=== PATIENT | male | born 1975 | race Caucasian/White ===

== ENCOUNTER 2022-03-08 09:02 | Inpatient (IN) | payer SELFPAY ==
[2022-03-08] VITALS (663 sets, daily range): BP systolic 84–119; BP diastolic 57–69; PULSE 79–101; TEMP 98.3; O2SAT 96–100
[~2022-03-08] VITALS: Ht 182.9 cm; Wt 80.9 kg
[~2022-03-08 09:02] MED LIST: CEPHALEXIN500 M1 PO; CIPRO 500MG TA500 MG PO; DOXYCYCLINE 10100 MG PO; GLUCOPHAGE500 MG/TAB PO; LANTUS SOLOS100 U/ML SQ; NOVOLIN R100 U/ML SQ
[2022-03-08 09:28] LABS: ARTERIAL BLD GAS O2 SATURATION 95.6 % (92-100); ARTERIAL BLD GAS TCO2 CT 12.7; ARTERIAL BLOOD GAS BASE EXCESS -11.3 (-2-2); ARTERIAL BLOOD GAS HCO3 12.1 meq/L (22-26); ARTERIAL BLOOD GAS PCO2 21.7 mmHg (35-45); ARTERIAL BLOOD GAS PO2 86.5 mmHg (80-100); ARTERIAL BLOOD GAS pH 7.36 (7.35-7.45)
[2022-03-08 09:31] LABS: MUCOUS Present (NOT PRESENT); PH 5 (5-8); SQUAMOUS EPITHELIAL None Seen /hpf (0-10); URINE APPEARANCE Hazy (CLEAR/HAZY); URINE BACTERIA None Seen /hpf (NONE SEEN); URINE BILIRUBIN Negative (NEGATIVE); URINE BLOOD 1+ (NEGATIVE); URINE COLOR Yellow (YELLOW); URINE GLUCOSE 3+ (NEGATIVE); URINE KETONE 1+ (NEGATIVE); URINE LEUKOCYTE ESTERASE Negative (NEGATIVE); URINE NITRATE Negative (NEGATIVE); URINE PROTEIN(semi-quant) 2+ (NEGATIVE); URINE RBC 0-2 /hpf (0-2); URINE UROBILINOGEN Negative (NEGATIVE)
[2022-03-08 09:33] LABS: COLLECTION METHOD CATHETER
[2022-03-08 09:34] LABS: BASO % 0.2 % (0.0-2.0); GRAN # 11.1 K/mm3 (1.4-6.5); GRAN % 79.7 % (42.2-75.2); HEMATOCRIT 43.5 % (42.0-52.0); LYMPH # 1.5 K/mm3 (1.2-3.4); MEAN CELL VOLUME 85 fl (80.0-100.0); MEAN CORPUSCULAR HEMOGLOBIN 28 pg (27-31); MEAN CORPUSCULAR HGB CONC 32 g/dl (33.0-37.0); MEAN PLATELET VOLUME 10.6 fl (7.4-10.4); MONO # 1.2 K/mm3 (0.1-0.6); MONO % 8.7 % (1.7-9.3); PLATELET COUNT 632 K/mm3 (130-400); REDCELL DISTRIBUTION WIDTH-CV 14.3 % (11.5-14.5)
[2022-03-08 09:47] LABS: ALBUMIN 1.4 gm/dL (3.5-5.0); BILIRUBIN,TOTAL 0.2 mg/dL (0.2-1.2); C-REACTIVE PROTEIN 3.35 mg/dL (0.00-0.50); CREATININE, serum 3.22 mg/dL (0.72-1.25); POTASSIUM 4.6 mmol/L (3.5-4.5)
--- NOTE | 2022-03-08 13:39 | NUR ---
workers compensation claims specialist contacted patient's brother, Venkat Arreola, #[phone], and obtained the following information as patient is unresponsive. Patient lives with Venkat and they have been in [place] for about 2 years. Venkat states that patient is not and does not have any children. Patient's parents are both and he has two brothers (Venkat and Umberto). Venkat verbalizes understanding that he and Umberto are patient's legal next of kin as there are no advance directives made by the patient. Patient does not have any primary care provider and has received his insulin and lantus prescriptions from the emergency room previously. Venkat states that he would help patient, however, patient is a "slow learner" and never wanted to be seen by a physician or apply for Medicaid or Disability. Patient does not work at this time and does not have any health insurance. Venkat states that patient has seen mental health providers previously, possibly in [place] or [place].
[2022-03-08 15:38] LABS: CALCIUM 7.7 mg/dL (8.4-10.2); CREATININE, serum 2.89 mg/dL (0.72-1.25); POTASSIUM 3.4 mmol/L (3.5-4.5)
--- NOTE | 2022-03-08 15:48 | NUR ---
tradeshow worker met with patient's brother, Venkat, and their rate reviewer and offered support. Venkat will speak with his brother, Umberto and schedule a time tomorrow to talk with physician via [employer]. Umbreto resides in [place].
[2022-03-08 15:49] LABS: ARTERIAL BLD GAS O2 SATURATION 98.5 % (92-100); ARTERIAL BLOOD GAS BASE EXCESS -7.5 (-2-2); ARTERIAL BLOOD GAS HCO3 15.3 meq/L (22-26); ARTERIAL BLOOD GAS PCO2 23.7 mmHg (35-45); ARTERIAL BLOOD GAS pH 7.43 (7.35-7.45)
[2022-03-08 15:50] LABS: ARTERIAL BLOOD GAS PO2 156.4 mmHg (80-100)
[2022-03-08 17:45] LABS: CALCIUM 7.4 mg/dL (8.4-10.2); CREATININE, serum 2.69 mg/dL (0.72-1.25); POTASSIUM 3.3 mmol/L (3.5-4.5)
[2022-03-08 18:24] LABS: GASTROCCULT POSITIVE; pH GASTRIC CONTENTS 3
[2022-03-08 19:18] LABS: CALCIUM 7.4 mg/dL (8.4-10.2); CREATININE, serum 2.65 mg/dL (0.72-1.25); POTASSIUM 3.4 mmol/L (3.5-4.5)
--- NOTE | 2022-03-08 19:53 | NUR ---
ALARMS TESTED AND WORKING. TX GIVEN INLINE WITH VENT AND TOLERATED WELL.
[2022-03-08 21:32] LABS: CALCIUM 7.3 mg/dL (8.4-10.2); CREATININE, serum 2.61 mg/dL (0.72-1.25); POTASSIUM 3.9 mmol/L (3.5-4.5)
--- NOTE | 2022-03-08 23:20 | NUR ---
[address] QUIÑONEZ OF PATIENT WITH LOW BP, STATED HE WILL BE OVER TO SEE PATIENT ANA. 0 DR. QUIÑONEZ PRESENT AT PATIENT BEDSIDE, NOTIFIED OF ACTIONS TAKEN WITH LOW SBP, PLACING SEDATION MEDICATIONS ON HOLD DUE TO PATIENT ONLY WITHDRAW FROM DEEP PAINFUL STIMULI PRIOR TO THIS TIME. NOTED SBP AT 2315 OF 108/64, WITH SEDATION MEDICATION ON HOLD FOR APPROX 30 MINUTES. RESTARTED FENTANYL AT PREVIOUS DOSE OF 25 MCG/HR CONTINUE WITH PROPOFOL ON HOLD. WILL MONITOR FOR PATIENT AWAKENING.
[2022-03-08 23:32] LABS: CALCIUM 7.6 mg/dL (8.4-10.2); CREATININE, serum 2.57 mg/dL (0.72-1.25); POTASSIUM 3.8 mmol/L (3.5-4.5)
[2022-03-09] VITALS (1230 sets, daily range): BP systolic 82–146; BP diastolic 50–74; PULSE 75–93; TEMP 97.9–98.6; O2SAT 68–100
--- NOTE | 2022-03-09 00:45 | NUR ---
LEVOPHED INITIATED AT 0028 DUE TO DECREASING BP AT 0045 BP OF 127/67 RESTARTED PROPOFOL DUE TO PATIENT COUGHING AGAINST VENT AT TIMES
[2022-03-09 01:21] LABS: CALCIUM 7.5 mg/dL (8.4-10.2); CREATININE, serum 2.49 mg/dL (0.72-1.25); POTASSIUM 3.8 mmol/L (3.5-4.5)
[2022-03-09 03:34] LABS: CALCIUM 7.4 mg/dL (8.4-10.2); CREATININE, serum 2.42 mg/dL (0.72-1.25); POTASSIUM 3.7 mmol/L (3.5-4.5)
--- NOTE | 2022-03-09 05:11 | NUR ---
PATIENT HAS BEEN INTUBATED LESS THAN 24 HOURS NO SEDATION VACATION PREFORMED AT THIS TIME
--- NOTE | 2022-03-09 05:20 | NUR ---
46 yo male admitted for further care and management of a sub-acute CVA, DKA, as well as sepsis now with positive blood cultures with presumptive ID of Kleb oxytoca and Staph aureus. ht 182.9 cm wt 75.8 kg SCr 2.49 with estimated CrCl ~35 ml/min half life 22.6 hours Plan: Will give an initial loading dose of vancomycin 1500 mg x1 (19.8 mg/kg); followed by a maintenance regimen of vancomycin 1250 mg q24h to target a goal trough of 15-20 mcg/ml. Will follow patient's renal function, micro data, and vancomycin levels as indicated to assess for any necessary changes to regimen. Thank you for this dosing consult.
[2022-03-09 05:55] LABS: ARTERIAL BLD GAS O2 SATURATION 98.3 % (92-100); ARTERIAL BLD GAS TCO2 CT 18.2; ARTERIAL BLOOD GAS BASE EXCESS -5.2 (-2-2); ARTERIAL BLOOD GAS HCO3 17.4 meq/L (22-26); ARTERIAL BLOOD GAS PCO2 25.4 mmHg (35-45); ARTERIAL BLOOD GAS pH 7.45 (7.35-7.45)
[2022-03-09 05:57] LABS: ARTERIAL BLOOD GAS PO2 139.7 mmHg (80-100)
[2022-03-09 05:58] LABS: BASO % 0.3 % (0.0-2.0); EOS % 0.1 % (0.0-4.0); GRAN # 11.5 K/mm3 (1.4-6.5); GRAN % 74.8 % (42.2-75.2); LYMPH # 2.4 K/mm3 (1.2-3.4); LYMPH % 15.9 % (20.0-51.0); MEAN CELL VOLUME 88 fl (80.0-100.0); MEAN CORPUSCULAR HGB CONC 32 g/dl (33.0-37.0); MEAN PLATELET VOLUME 10.6 fl (7.4-10.4); MONO # 1.3 K/mm3 (0.1-0.6); MONO % 8.4 % (1.7-9.3); RED BLOOD COUNT 3.55 M/mm3 (4.20-5.60); REDCELL DISTRIBUTION WIDTH-CV 14.6 % (11.5-14.5)
[2022-03-09 06:08] LABS: INR 1.1 (0.8-3.0); PROTHROMBIN TIME 11.8 SECONDS (9.7-12.8)
[2022-03-09 06:19] LABS: HEMATOCRIT 31.1 % (42.0-52.0); MEAN CORPUSCULAR HEMOGLOBIN 28 pg (27-31)
[2022-03-09 06:20] LABS: HEMOGLOBIN 9.8 g/dl (13.5-18.0); PLATELET COUNT 418 K/mm3 (130-400)
[2022-03-09 06:21] LABS: CALCIUM 7.4 mg/dL (8.4-10.2); CHOLESTEROL RISK RATIO 9.2; CREATININE, serum 2.33 mg/dL (0.72-1.25); POTASSIUM 3.6 mmol/L (3.5-4.5)
--- NOTE | 2022-03-09 07:00 | NUR ---
BEDSIDE SHIFT REPORT GIVEN BY ROSIE BEST. RIGHT ARM DRIP IN PLACE SEE DRIP FLOWSHEET FOR INFUSIONS. MCKEON IN PLACE WITH APPROPRIATE OUTPUT. VENT SIZE 8.0, MODE AC, TV 470, PEEP 5, FIO2 25%. ETT AT 25 AT TEETH. OG 55 AT TEETH WITH BROWN DRAINAGE, OG TO LIS. BILATERAL SOFT WRIST RESTRAINTS IN PLACE, CMES INTACT. VSS, NO S/S OF DISCOMFORT
[2022-03-09 07:19] LABS: CALCIUM 7.2 mg/dL (8.4-10.2); CREATININE, serum 2.26 mg/dL (0.72-1.25); POTASSIUM 3.8 mmol/L (3.5-4.5)
[2022-03-09 09:33] LABS: CALCIUM 7.3 mg/dL (8.4-10.2); CREATININE, serum 2.28 mg/dL (0.72-1.25); POTASSIUM 3.9 mmol/L (3.5-4.5)
--- NOTE | 2022-03-09 10:30 | NUR ---
PROPOFOL AND FENTYNL ON HOLD WEENING TRIAL
[2022-03-09 13:01] LABS: CALCIUM 7.4 mg/dL (8.4-10.2); CREATININE, serum 2.3 mg/dL (0.72-1.25); MAGNESIUM 1.7 mg/dL (1.6-2.6); PHOSPHOROUS 2.4 mg/dL (2.3-4.7); POTASSIUM 4.4 mmol/L (3.5-4.5)
--- NOTE | 2022-03-09 17:21 | NUR ---
PT OFF SEDATION SINCE THIS AM.
[2022-03-09 19:04] LABS: CALCIUM 7.3 mg/dL (8.4-10.2); CREATININE, serum 2.29 mg/dL (0.72-1.25); POTASSIUM 4.2 mmol/L (3.5-4.5)
--- NOTE | 2022-03-09 20:00 | NUR ---
UPON ASSESSMENT PATIENT WILL MOVE BOTH LEGS IN WITH DRAWAL FROM TOUCH, ALSO OPEN EYES UPON COMAND AND EXTERNAL STIMULATION.. NO MOVEMENT OF EYES FROM LEFT TO RIGHT = AND REACTIVE MM4. HOSPITALIST CONTACTED TO EVELUATE FURTHER..
[2022-03-10] VITALS (1053 sets, daily range): BP systolic 124–140; BP diastolic 73–77; PULSE 80–95; TEMP 97.3–99.1; O2SAT 95–100
[2022-03-10 00:39] LABS: CALCIUM 7.5 mg/dL (8.4-10.2); CREATININE, serum 2.24 mg/dL (0.72-1.25)
--- NOTE | 2022-03-10 01:08 | NUR ---
Contacted [facility]. Referral #[id number]. [facility] requests update if plan of care or patient status changes.
[2022-03-10 04:47] LABS: BASO % 0.1 % (0.0-2.0); EOS % 0.2 % (0.0-4.0); GRAN # 11.3 K/mm3 (1.4-6.5); GRAN % 78.6 % (42.2-75.2); LYMPH # 1.9 K/mm3 (1.2-3.4); LYMPH % 12.9 % (20.0-51.0); MEAN CELL VOLUME 89 fl (80.0-100.0); MEAN CORPUSCULAR HGB CONC 32 g/dl (33.0-37.0); MEAN PLATELET VOLUME 10.3 fl (7.4-10.4); MONO # 1.1 K/mm3 (0.1-0.6); MONO % 7.9 % (1.7-9.3); PLATELET COUNT 341 K/mm3 (130-400); RED BLOOD COUNT 3.42 M/mm3 (4.20-5.60); REDCELL DISTRIBUTION WIDTH-CV 14.7 % (11.5-14.5)
[2022-03-10 04:52] LABS: HEMATOCRIT 30.3 % (42.0-52.0); HEMOGLOBIN 9.6 g/dl (13.5-18.0); MEAN CORPUSCULAR HEMOGLOBIN 28 pg (27-31)
[2022-03-10 04:55] LABS: INR 1.2 (0.8-3.0); PROTHROMBIN TIME 13.4 SECONDS (9.7-12.8)
[2022-03-10 05:04] LABS: CALCIUM 6.7 mg/dL (8.4-10.2); CREATININE, serum 1.85 mg/dL (0.72-1.25); MAGNESIUM 1.6 mg/dL (1.6-2.6); POTASSIUM 3.5 mmol/L (3.5-4.5)
[2022-03-10 05:05] LABS: ARTERIAL BLD GAS O2 SATURATION 96.5 % (92-100); ARTERIAL BLOOD GAS BASE EXCESS -6.8 (-2-2); ARTERIAL BLOOD GAS HCO3 16.9 meq/L (22-26); ARTERIAL BLOOD GAS PCO2 28.5 mmHg (35-45); ARTERIAL BLOOD GAS PO2 88.8 mmHg (80-100); ARTERIAL BLOOD GAS pH 7.39 (7.35-7.45)
--- NOTE | 2022-03-10 05:06 | NUR ---
ANESTHIA AND SEDATION HAV BEEN DC FOR THE LAST 16 HOURS, PATIENT DOES NO RESPONSE TO EXTERNAL STIMULI/ IS ON CPAP TRIAL AT THIS TIME
--- NOTE | 2022-03-10 05:08 | NUR ---
PT IS ON CPAP TRIAL 5/5 TOLERATING THE WEAN TRIAL VERY WELL. PT IS OFF ALL SEDATION, IN OBTAINING AM ABG THIS RT WAS POKING THE LEFT ARM WHICH IS SAID TO BE THE PARALYZED SIDE FROM THE PTS STROKE. HOWEVER, WHEN POKING FOR THE ABG THE PATIENT HAD MOVED THEIR ARM AFTER BEING STUCK. PT ALSO GRIMMACES WHEN DOING ORAL CARE.
--- NOTE | 2022-03-10 07:29 | NUR ---
On 03/09/2022 social media assistant met with brother, Venkat and offered emotional support. Venkat states that his brother Umberto (who lives in [place]) is on parole and is trying to get a pass to come to visit patient. Venkat states they made patient a DNR.
--- NOTE | 2022-03-10 09:03 | NUR ---
BEDSIDE SHIFT REPORT RECEIVED FROM ROSIE Mccall. PT LINES RUNNING THROUGH RIGHT UPPER ARM PICC. (SEE DRIP FLOWSHEET) MCKEON IS TO GRAVITY AND DRAINING APPROPRIATELY PT NO LONGER IN RESTRAINTS. VENT/ETT AT 25CM/OG IN PLACE SPECIFIED. VENT ON CPAP TRIAL. VITAL SIGNS WDL
--- NOTE | 2022-03-10 10:23 | NUR ---
The patient remains intubated. He is less responsive today. His RN reports that the patient's brother, Umberto, from [place] will be arriving to [facility] around 2300. The patient's brother's Venkat and Umberto are the patient's next-of-kin.
--- NOTE | 2022-03-10 13:54 | NUR ---
RN CALLED TO INFORM ME THAT THE VENTILATOR HAD BEEN PLACED BACK IN ACVC+ MODE DUE TO PROLONGED PERIOD OF APNEA. PT HAD BEEN PLACED ON CPAP MODE 03/23, SINCE 299.
--- NOTE | 2022-03-10 19:09 | NUR ---
TX GIVEN INLINE WITH VENT, TOLERATED WELL. ALARMS TESTED AND WORKING.
[2022-03-11] VITALS (1236 sets, daily range): BP systolic 136–170; BP diastolic 82–98; PULSE 74–97; TEMP 98.3–98.9; O2SAT 77–100
[2022-03-11 04:47] LABS: ARTERIAL BLD GAS TCO2 CT 19.8; ARTERIAL BLOOD GAS BASE EXCESS -3.7 (-2-2); ARTERIAL BLOOD GAS PO2 113.1 mmHg (80-100); ARTERIAL BLOOD GAS pH 7.47 (7.35-7.45)
[2022-03-11 04:57] LABS: BASO % 0.2 % (0.0-2.0); EOS % 0.3 % (0.0-4.0); GRAN # 9.5 K/mm3 (1.4-6.5); GRAN % 80.2 % (42.2-75.2); HEMOGLOBIN 9.4 g/dl (13.5-18.0); LYMPH # 1.6 K/mm3 (1.2-3.4); LYMPH % 13.8 % (20.0-51.0); MEAN CELL VOLUME 89 fl (80.0-100.0); MEAN CORPUSCULAR HEMOGLOBIN 28 pg (27-31); MEAN CORPUSCULAR HGB CONC 31 g/dl (33.0-37.0); MEAN PLATELET VOLUME 10.7 fl (7.4-10.4); MONO # 0.6 K/mm3 (0.1-0.6); MONO % 5.2 % (1.7-9.3); PLATELET COUNT 311 K/mm3 (130-400); RED BLOOD COUNT 3.36 M/mm3 (4.20-5.60)
--- NOTE | 2022-03-11 05:00 | NUR ---
SEDATION VACATION PATIENT IS NOT ON ANY SEDATION, PATIENT IS UNRESPONSIVE TO VOICE AND PAINFUL STIMULI
[2022-03-11 05:03] LABS: INR 1.2 (0.8-3.0); PROTHROMBIN TIME 13.3 SECONDS (9.7-12.8)
[2022-03-11 05:15] LABS: CALCIUM 7.6 mg/dL (8.4-10.2); CREATININE, serum 2.11 mg/dL (0.72-1.25); MAGNESIUM 1.9 mg/dL (1.6-2.6); POTASSIUM 4.5 mmol/L (3.5-4.5)
--- NOTE | 2022-03-11 08:00 | NUR ---
Opens eyes and demonstrates facial grimacing with painful stimuli, however, unable to follow commands. Pupils equal and reactive with nystagmus noted bilaterally.
--- NOTE | 2022-03-11 12:20 | NUR ---
Extubated at 1220. Initially on 3L oxymask with o2 mid 90's. After approximately 10 min 02 needs up to 10L with o2 sats in the low 90's. Patient has snoring respirations and a gag reflex. Opens eyes to painful stimuli but not following any verbal commands. RT at bedside and has been providing frequent oral suctioning. Dr. Morales notified. Ordered an ABG and requested to be placed on BIPAP. This nurse made clear to Dr. Morales that patient was having copious amounts of oral secreations. WIll continue with plan for BIPAP.
--- NOTE | 2022-03-11 12:20 | NUR ---
PT EXTUBATED PER DR GODDARD'S ORDERS. PT WITH INCREASE SECRETIONS AND INITIAL DESATS TO HIGH 80'S WITH INCREASED WOB. SUCTIONED FOR MODERATE AMOUNT OF THICK YELLOW SECTRETIONS. SPO2 INCREASE TO 90'S. PT ON 10L OXYMASK POST EXTUBATION. HR 105, RR 22, SPO2 92%. NO STRIDOR NOTED POST EXTUBATION.PT PLACED ON BIPAP, SETTINGS PER DR. GODDARD ORDERS. PT [place] WELL AND APPEARS COMFORTABLE.
--- NOTE | 2022-03-11 13:00 | NUR ---
Disucssed plan of care with Dr. Morales. Patient's two brothers were at bedside to see patient. They made the decision to extubate at this time and if within 24hrs of initial extubation patient's respiratory status was to decomensate they would wish patient to be re-intubated. If after 24 hrs patient decompensates then they do not wish to proceed with re-intubation. Patient othewise remains a DNR as noted on the chart.
[2022-03-11 14:49] LABS: ARTERIAL BLD GAS O2 SATURATION 97.5 % (92-100); ARTERIAL BLD GAS TCO2 CT 20.5; ARTERIAL BLOOD GAS BASE EXCESS -3.5 (-2-2); ARTERIAL BLOOD GAS HCO3 19.6 meq/L (22-26); ARTERIAL BLOOD GAS PCO2 29.6 mmHg (35-45); ARTERIAL BLOOD GAS PO2 104.3 mmHg (80-100); ARTERIAL BLOOD GAS pH 7.44 (7.35-7.45)
--- NOTE | 2022-03-11 18:35 | NUR ---
Patient noted to occasionally desaturate to low 80's: RT notified. BIPAP mask adjusted and oral suctioning completed and o2 back to mid 90's. Will continue to monitor.
--- NOTE | 2022-03-11 19:15 | NUR ---
Received report from ROSIE Parr.
--- NOTE | 2022-03-11 20:30 | NUR ---
Patient resting quietly in bed. He does not verbally respond to sound or pain. Opens eyes and withdraws in response to pain. Vitals within normal limits. He continues to receive oxygen via BiPap with settings 16/8 at 40% FiO2. No IV fluids or medications infusing at this time.
[2022-03-12] VITALS (924 sets, daily range): BP systolic 124–138; BP diastolic 80–87; PULSE 85–101; TEMP 97.9–98.5; O2SAT 18–100
[2022-03-12 04:59] LABS: BASO % 0.2 % (0.0-2.0); EOS # 0.1 K/mm3 (0.0-0.7); EOS % 0.6 % (0.0-4.0); GRAN # 11.6 K/mm3 (1.4-6.5); GRAN % 81.5 % (42.2-75.2); HEMOGLOBIN 10.1 g/dl (13.5-18.0); LYMPH # 1.7 K/mm3 (1.2-3.4); LYMPH % 12.2 % (20.0-51.0); MEAN CELL VOLUME 90 fl (80.0-100.0); MEAN CORPUSCULAR HEMOGLOBIN 28 pg (27-31); MEAN CORPUSCULAR HGB CONC 31 g/dl (33.0-37.0); MEAN PLATELET VOLUME 10.9 fl (7.4-10.4); MONO # 0.7 K/mm3 (0.1-0.6); MONO % 5.1 % (1.7-9.3); PLATELET COUNT 341 K/mm3 (130-400); RED BLOOD COUNT 3.63 M/mm3 (4.20-5.60); REDCELL DISTRIBUTION WIDTH-CV 14.7 % (11.5-14.5)
[2022-03-12 05:01] LABS: HEMATOCRIT 32.8 % (42.0-52.0)
[2022-03-12 05:17] LABS: BILIRUBIN,TOTAL 0.2 mg/dL (0.2-1.2); CREATININE, serum 2.04 mg/dL (0.72-1.25); POTASSIUM 4.8 mmol/L (3.5-4.5); TOTAL PROTEIN 5.1 gm/dL (6.2-8.1)
--- NOTE | 2022-03-12 09:29 | NUR ---
BEDSIDE SHIFT REPORT GIVEN BY ROSIE BRICEÑO. PT ON BIPAP AND TOLERATING. PT IV ABX RUNNING (SEE DRIP FLOW SHEET). VSS. NO ACUTE CHANGES AT THIS TIME
--- NOTE | 2022-03-12 10:28 | NUR ---
PT TRIALED OFF BIPAP AT THIS TIME PER DR GODDARD ORDERS. PT CURRENTLY ON ROOM AIR, SPO2 93%, RR 19, HR 95. BLBS EQUAL BUT DIMINISHED.
[2022-03-12 11:32] LABS: ARTERIAL BLD GAS O2 SATURATION 91.3 % (92-100); ARTERIAL BLD GAS TCO2 CT 20.2; ARTERIAL BLOOD GAS BASE EXCESS -4.4 (-2-2); ARTERIAL BLOOD GAS HCO3 19.2 meq/L (22-26); ARTERIAL BLOOD GAS PCO2 31.4 mmHg (35-45); ARTERIAL BLOOD GAS PO2 64.1 mmHg (80-100)
--- NOTE | 2022-03-12 16:01 | NUR ---
PT HEART AND LUNG SOUNDS NOT HEARD DURING AUSCULTATION. TIME OF 1547. DR. LEONE NOTIFIED. FAMILY NOTIFIED. POSTMORTEM CARES PROVIDED
--- NOTE | 2022-03-12 16:11 | NUR ---
[facility] notified of patient , referral number [id number], patient not a candidate for organ, tissue or eye, may release body to home.
--- NOTE | 2022-03-13 12:08 | NUR ---
CALLED PT BROTHER NORMA ABOUT A WATCH THAT WAS LEFT IN PT ROOM. NORMA STATED THAT HE CAN COME UP TO THE HOSPITAL TO AIR CONDITIONING SERVICE TECHNICIAN.
== END 2022-03-12 19:45 | disposition expired | DRG 871 ==
LOC: COL.ER 09:02 → ICU 11:32
PROVIDERS: Emergency Medicine; Family Medicine; Internal Medicine Sleep Medicine; ADMIT Internal Medicine
PROC: 02HV33Z Insertion of Infusion Device into Superior Vena Cava, Percutaneous Approach (ICD-10-PCS; principal; 2022-03-08)
PROC: 5A1945Z Respiratory Ventilation, 24-96 Consecutive Hours (ICD-10-PCS; 2022-03-08)
PROC: 0BH17EZ Insertion of Endotracheal Airway into Trachea, Via Natural or Artificial Opening (ICD-10-PCS; 2022-03-08)
PROC: 5A09357 Assistance with Respiratory Ventilation, Less than 24 Consecutive Hours, Continuous Positive Airway Pressure (ICD-10-PCS; 2022-03-11)
DX: A41.81 Sepsis due to Enterococcus (principal); E11.10 Type 2 diabetes mellitus with ketoacidosis without coma; J96.01 Acute respiratory failure with hypoxia; G93.41 Metabolic encephalopathy; K29.71 Gastritis, unspecified, with bleeding; I63.40 Cerebral infarction due to embolism of unspecified cerebral artery; N17.9 Acute kidney failure, unspecified; E87.0 Hyperosmolality and hypernatremia; E46 Unspecified protein-calorie malnutrition; E83.52 Hypercalcemia; Z66 Do not resuscitate; R65.20 Severe sepsis without septic shock; N18.30 Chronic kidney disease, stage 3 unspecified; D64.9 Anemia, unspecified; B96.1 Klebsiella pneumoniae [K. pneumoniae] as the cause of diseases classified elsewhere; B95.8 Unspecified staphylococcus as the cause of diseases classified elsewhere; R29.700 NIHSS score 0; I25.10 Atherosclerotic heart disease of native coronary artery without angina pectoris; L89.156 Pressure-induced deep tissue damage of sacral region; D75.839 Thrombocytosis, unspecified; E11.649 Type 2 diabetes mellitus with hypoglycemia without coma; I25.2 Old myocardial infarction; Z91.14 Patient's other noncompliance with medication regimen; Z79.4 Long term (current) use of insulin; Z51.5 Encounter for palliative care; Z20.822 Contact with and (suspected) exposure to COVID-19; Z68.27 Body mass index [BMI] 27.0-27.9, adult
CPT/HCPCS: 99233-AI; 99239; C1751; C9113; J0330; J1450; J1644; J1815; J1940; J1953; J2060; J2250; J2270; J2543; J2704; J3010; J3370; J3480; J7030; J7050; J7060; J7070; J7120